=== PATIENT | female | born 1990 | race Two or more races ===

== ENCOUNTER 2018-12-05 03:28 | Emergency (ER) | payer OTHER ==
[~2018-12-05] VITALS: Ht 149.9 cm; Wt 76.7 kg
--- NOTE | 2018-12-05 03:33 | NUR ---
ED Nurse Note: PT WAS ASSISTED TO ED C/O LEFT ANKLE PAIN S/P "STANDING UP AND TWISTING MY LEG AT 0300 AT WORK". NOTABLE DEFORMITY TO ANKLE. SKIN INTACT.
--- NOTE | 2018-12-05 03:34 | NUR ---
ED Nurse Note: pt accompanied by
[2018-12-05] MEDS ORDERED: HYDROcodone/Acetamin 10/325 tab ORAL ONE (03:45)
--- NOTE | 2018-12-05 03:47 | Emergency Room Report ---
History of Present Illness General Chief Complaint: Lower Extremity Injury Source: Patient Present Illness HPI Disclaimer: Please note that this report is being documented using [employer] technology. This can lead to erroneous entry secondary to incorrect interpretation by the dictating instrument. HPI: Otherwise healthy 28-year-old female presents for evaluation of flank left ankle pain and swelling. 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 She is got up too quickly and twisted her ankle. She stated she everted the left ankle and had a fall from standing but there is no head injury or loss of consciousness. Noted immediate swelling and deformity. She is able to bear some weight though is very painful. She was assisted to the emergency department.. No prior history of left ankle injury. No other injuries reported. PMH: Denies PSH: Denies Allergies: Denies Social Hx: Denies drug or alcohol use Allergies: Coded Allergies: No Known Allergies (Unverified , 12/05/18) Patient History Last Menstrual Period: 11/19/18 Now: No Nursing Documentation-PMH Past Medical History: No Stated History Review of Systems All Other Systems: negative except mentioned in HPI Physical Exam Vital Signs Date Time Temp Pulse Resp B/P (MAP) Pulse Ox O2 Delivery O2 Flow Rate FiO2 12/05/18 03:33 97.7 74 19 126/75 (92) 96 Room Air General: Awake and alert, appears moderately uncomfortable HEENT: NC/AT. EOMI. Resp: Normal work of breathing Skin: Intact. No abrasions, laceration or rash over the exposed skin MSK: There is tenderness and significant edema over the lateral malleolus with a hematoma. No tenderness over the medial malleolus. Limited range of motion secondary to pain and swelling. Patient is able to flex and extend the toes without difficulty. No tenderness over the midfoot. No edema over the foot. Neuro: Awake and alert. Mentating appropriately. Sensation intact over the dermatomes of the lower extremities bilaterally. Medical Decision Making Diagnostic Impression: Primary Impression: Ankle sprain ER Course 28-year-old female presents for evaluation of a left ankle injury. Strong suspicion of fracture dislocation at this time however may be a strain, sprain or a soft tissue injury. Will give pain medication and send patient for an x- ray of the left ankle. No apparent injury to the foot. Other X-Ray Diagnostic Results Other X-Ray Diagnostic Results : X-Ray ordered: Left ankle # of Views/Limited Vs Complete: 3 View Indication: Pain EP Interpretation: Yes Interpretation: no dislocation, no fractures, other - Soft tissue swelling on the lateral malleolus Impression: Other - No obvious fracture Electronically Signed by: Electronically signed by Dr. Maximilian Be Reevaluation Time: 04:23 Last Vital Signs Date Time Temp Pulse Resp B/P (MAP) Pulse Ox O2 Delivery O2 Flow Rate FiO2 12/05/18 03:33 97.7 74 19 126/75 (92) 96 Room Air Reevaluation Impression No fracture or dislocation appreciated on x-ray. May have a ligamentous injury such as a strain or sprain possibly even ligament rupture. She does not require emergent MRI at this time but may require one as an outpatient. We will put in an Aircast and give crutches. She will be nonweightbearing on the left extremity and given a note of excuse from work. Will discharge home with NSAIDs. Discussed reasons to return to the emergency department as well as prompt need to follow-up with PMD who may refer her to orthopedic surgery if she fails to improve. She understands and agrees with history plan was discharged home. Disposition: HOME, SELF-CARE Condition: Stable Scripts Acetaminophen* (ACETAMINOPHEN 325MG TABLET*) 325 Mg Tablet 650 MG ORAL Q6H PRN for For Pain for 5 Days, #40 TAB Prov: Maximilian Be MD 12/05/18 Ibuprofen* (MOTRIN*) 600 Mg Tablet 600 MG ORAL Q8H PRN for For Pain, #30 TAB 0 Refills Prov: Maximilian Be MD 12/05/18 Maximilian Be MD Dec 05, 2018 03:47
--- NOTE | 2018-12-05 04:00 | NUR ---
Medicated as ordered, waiting for X-ray.
--- NOTE | 2018-12-05 04:15 | NUR ---
ED Nurse Note: xray at bedside
--- NOTE | 2018-12-05 04:24 | NUR ---
ED Nurse Note: xray completed
[2018-12-05] MEDS ORDERED: ACETAMINOPHEN325 M1 ORAL (04:27)
[2018-12-05] MEDS ORDERED: IBUPROFEN600 MG ORAL (04:27)
[2018-12-05 04:35] VITALS: BP 133/79
--- NOTE | 2018-12-05 04:35 | NUR ---
ER DISCHARGE NOTE: Patient is cleared to be discharged per ERMD, pt is aox4, on room air, with stable vital signs. pt was given dc and prescription instructions, pt was able to verbalize understanding, pt id band and iv site removed without complications. pt is able to ambulate with steady gait on crutches. pt took all belongings. pt accompanied by
--- NOTE | 2018-12-05 04:57 | Diagnostic Imaging Report ---
EXAM: XR Left Ankle Complete, 3 or More Views CLINICAL HISTORY: INJ TECHNIQUE: Frontal, lateral and oblique views of the left ankle. COMPARISON: No relevant prior studies available. FINDINGS: Bones joints: No acute fracture. Small joint effusion. No dislocation. Soft tissues: Soft tissue edema most pronounced laterally. IMPRESSION: 1. No acute fracture. 2. Soft tissue edema most pronounced laterally with a joint effusion.
--- NOTE | 2018-12-05 07:10 | Emergency Room Report ---
Physical Exam Vital Signs Date Time Temp Pulse Resp B/P (MAP) Pulse Ox O2 Delivery O2 Flow Rate FiO2 12/05/18 03:33 97.7 74 19 126/75 (92) 96 Room Air Medical Decision Making Diagnostic Impression: Primary Impression: Ankle sprain Last Vital Signs Date Time Temp Pulse Resp B/P (MAP) Pulse Ox O2 Delivery O2 Flow Rate FiO2 12/05/18 04:35 97.6 68 15 133/79 100 Room Air Disposition: HOME, SELF-CARE Condition: Stable Scripts Acetaminophen* (ACETAMINOPHEN 325MG TABLET*) 325 Mg Tablet 650 MG ORAL Q6H PRN for For Pain for 5 Days, #40 TAB Prov: Maximilian Be MD 12/05/18 Ibuprofen* (MOTRIN*) 600 Mg Tablet 600 MG ORAL Q8H PRN for For Pain, #30 TAB 0 Refills Prov: Maximilian Be MD 12/05/18 Referrals: NOT CHOSEN IPA/,REFERRING (PCP) [facility] Open 24 hour /7 days a week by Appointment Only [address] [facility] [address] [address] [facility] Departure Forms: Return to Work Return to Work Date: Dec 07, 2018 Work Restrictions: No Heavy Lifting, No Prolonged Standing Patient Instructions: Ankle Sprain, Crutch Use, [id number], Cast or Splint Care Additional Instructions: Your evaluated today in the emergency department with an ankle injury. X-ray does not show a fracture however this may be a strain, sprain or a soft tissue injury. You will be placed in a splint and use crutches as you are not can be able to bear weight for some time until your injuries are fully healed. He will require close follow-up with your primary care doctor who may send you to orthopedic surgery. We will also give you the number of an orthopedic urgent care in case your pain or swelling becomes suddenly worse. Continue using Tylenol, Motrin, keep the leg elevated, apply ice. Do not participate in any strenuous activity until cleared to do so by a physician. Return to the emergency department any new or worsening symptoms. Procedures Splinting Splinting : Consent: Verbal Location: Left ankle Pre-Made Type: MIRELA wrap Pre-Proc Neuro Vasc Exam: normal Post-Proc Neuro Vasc Exam: normal, unchanged from pre-exam Patient Tolerated: Well Complications: None Progress Patient provided with crutches and is to be nonweightbearing. Maximilian Be MD Dec 05, 2018 07:10
== END 2018-12-05 04:35 | disposition home or self-care (01) ==
LOC: EMR 04:08
DX: S93.402A Sprain of unspecified ligament of left ankle, initial encounter (principal); X50.1XXA Overexertion from prolonged static or awkward postures, initial encounter; Y92.129 Unspecified place in nursing home as the place of occurrence of the external cause; Y99.0 Civilian activity done for income or pay
CPT/HCPCS: 99283